=== PATIENT | female | born 1970 | race Two or more races ===

== ENCOUNTER → 2024-07-23 | Outpatient (CLI) | payer BC, SELFPAY ==
--- NOTE | 2024-07-23 09:30 | XR_ITS ---
Examination: Esophagram standard Upright PA chest single view Upright soft tissue lateral neck single view Fluoroscopy 24 spot fluoroscopic films of the esophagus Exam date and time: July 23, 2024 0942 hours INDICATIONS: Heartburn acid reflux patient feels a lump in the back of her throat with swallowing TECHNIQUE AND FINDINGS: Upright PA chest single view normal heart size no pneumonia or pulmonary edema Upright soft tissue lateral neck moderate to advanced degenerative disc disease C4-C5, C5-C6, C6-C7 Patient swallowed thin barium with 24 spot fluoroscopic films of the esophagus Fluoroscopy 0.13 minutes Primary peristaltic esophageal waves noted No constricting esophageal lesion No esophageal ulcerations Moderate intermittent gastroesophageal reflux There is no stricture at the gastroesophageal junction IMPRESSION: Moderate intermittent gastroesophageal reflux There is no stricture the gastroesophageal junction
[2024-07-23 11:16] LABS: Basophils # (Auto) 0.1 Thou/mm3 (0.0-0.2); Basophils % (Auto) 1 % (0-2.5); Eosinophils # (Auto) 0.3 Thou/mm3 (0.0-0.5); Eosinophils % (Auto) 4 % (0-10); Immature Granulocytes % (Auto) 0 % (0-0); Immature Granulocytes Auto 0.02 Thou/mm3 (0.00-0.00); Lymphocytes # (Auto) 1.9 Thou/mm3 (1.0-4.8); Lymphocytes % (Auto) 30 % (10-50); Mean Corpuscular HGB Conc 33.3 g/dl (31.0-37.0); Mean Corpuscular Hemoglobin 30.6 pg (25.0-35.0); Mean Corpuscular Volume 92 fL (80-100); Monocytes # (Auto) 0.7 Thou/mm3 (0.0-0.8); Monocytes % (Auto) 11 % (0-12); Neutrophils # (Auto) 3.4 Thou/mm3 (1.8-7.7); Neutrophils % (Auto) 54 % (37-80); Nucleated Red Blood Cell % 0 /100 WBC (0); Platelet Count 307 Thou/mm3 (140-440); Red Blood Count 4.25 Miln/mm3 (4.00-5.20); White Blood Count 6.3 Thou/mm3 (3.6-11.0)
[2024-07-23 11:26] LABS: Glucose Estimated Average 108 mg/dL (80-131); Hemoglobin A1C 5.4 % Hgb (4.8-6.0)
[2024-07-23 11:34] LABS: Alanine Aminotransferase 18 U/L (10-49); Albumin, Serum 4.5 gm/dL (3.5-5.0); Albumin/Globulin Ratio 1.8 (1.2-2.2); Alkaline Phosphatase 75 U/L (46-116); Anion Gap 7 (7-16); Aspartate Amino Transferase 19 U/L (0-34); BUN/Creatinine Ratio 16 Ratio (12-20); Blood Urea Nitrogen 13 mg/dL (9-23); Calcium 9.2 mg/dL (8.3-10.6); Calcium (Corrected) 9.2 mg/dL (8.5-10.1); Carbon Dioxide 29.7 mMol/L (20.0-31.0); Cardiac Risk Estimate 3.5 RATIO (3.7-5.6); Chloride 102 mMol/L (98-107); Cholesterol 192 mg/dL (132-200); Creatinine (Component) 0.8 mg/dL (0.6-1.3); Free T4 (Free Thyroxine) 1.08 ng/dL (0.89-1.76); Globulin 2.5 gm/dL (2.3-3.5); Glucose 94 mg/dL (74-106); HDL Cholesterol 55 mg/dL (40-60); LDL Cholesterol,Calculated 117 mg/dL (0-130); Osmolality,Calculated 277 (275-295); Potassium 4.5 mMol/L (3.4-5.1); Sodium 139 mMol/L (136-145); Thyroid Stimulating Hormone 1.92 uIU/mL (0.55-4.78); Triglycerides 99 mg/dL (30-150); eGFR > 60 See Note
[2024-07-23 11:42] LABS: T4 (Thyroxine) 5.6 mcg/dL (4.5-10.9)
[2024-07-23 11:43] LABS: Folate 15.32 ng/mL (>5.38); Follicle Stimulating Hormone 6.68 mIU/mL (See Note); Vitamin B12 566 pg/mL (211-911)
[2024-07-27 06:43] LABS: T3,Total* 84 ng/dL (76-181)
== END | disposition home or self-care (01) ==
LOC: CDIM 09:21 → COPL 10:24
PROVIDERS: PCP Family Medicine; Referring Provider Obstetrics & Gynecology; Visit Provider Radiology Diagnostic Radiology
DX: K21.9 Gastro-esophageal reflux disease without esophagitis (principal); Z00.00 Encounter for general adult medical examination without abnormal findings; N95.1 Menopausal and female climacteric states
CPT/HCPCS: 36415; 74220; 80053; 80061; 82607; 82746; 83001; 83036; 84436; 84439; 84443; 84480; 85025

== ENCOUNTER → 2024-10-22 | Outpatient (CLI) | payer BC, SELFPAY ==
--- NOTE | 2024-10-22 08:15 | XR_ITS ---
Examination: Screening digital mammography, bilateral Computer aided detection 3-D breast Tomosynthesis, bilateral Date and time of exam: October 22, 2024 0824 hours Compared to mammograms dating to February 07, 2013 Indication: Screening Technique: Nonmagnified MLO, CC views of the breasts to been obtained, reconstructed from 3-D Tomosynthesis images. R2 computer aided detection program utilized for evaluation of suspicious masses and/or abnormal calcifications. 3-D Tomosynthesis images obtained. Findings: The breasts are heterogeneously dense, which may obscure small masses Intact implants No interval suspicious masses Impression: BI-RADS category II: Benign Findings. Recommend 1 year follow-up mammogram. Given the 2:00 and 9:00 nodules right breast described on right breast sonogram March 30, 2021, recommend right breast sonography follow-up
== END | disposition home or self-care (01) ==
LOC: CDIM 08:10
PROVIDERS: Referring Provider Family Medicine; Visit Provider Family Medicine
DX: Z12.31 Encounter for screening mammogram for malignant neoplasm of breast (principal); R92.323 Mammographic fibroglandular density, bilateral breasts; N63.15 Unspecified lump in the right breast, overlapping quadrants
CPT/HCPCS: 77063; 77067

== ENCOUNTER → 2024-11-06 | Outpatient (CLI) | payer BC, SELFPAY ==
--- NOTE | 2024-11-06 16:00 | XR_ITS ---
Examination: Breast ultrasound, unilateral, right Date and time of exam: November 06, 2024 1538 hours INDICATIONS: Right breast sonogram March 30, 2021 2:00 nodule 6 mm 9:00 nodule 12 mm 9:00 nodule 9 mm Technique: Real-time schafer scale ultrasonographic imaging performed right breast including all 4 quadrants as well as nipple retroareolar and axillary region. Findings: 2:00 cyst 5 x 4 mm 5:00 cyst 6 x 6 mm 8:00 nodule lobular margins 17 x 12 mm 8:00 nodule lobular margins 11 x 7 mm 9:00 cyst 6 x 6 mm IMPRESSION: BI-RADS Category 3: Probably benign findings One additional continued 6 month follow-up right breast sonogram is needed to document stability of nodules in the 8:00 position right breast
== END | disposition home or self-care (01) ==
LOC: CDIM 15:31
PROVIDERS: PCP Family Medicine; Referring Provider Family Medicine; Visit Provider Family Medicine
DX: N63.13 Unspecified lump in the right breast, lower outer quadrant (principal)
CPT/HCPCS: 76641

== ENCOUNTER → 2025-03-25 | Outpatient (CLI) | payer BC, SELFPAY ==
--- NOTE | 2025-03-25 08:45 | XR_ITS ---
Examination: Breast ultrasound, unilateral, right complete Date and time of exam: March 25, 2025, 0923 hours INDICATIONS: Right breast sonogram March 30, 2021 2:00 nodule 6 mm 9:00 nodule 12 mm 9:00 nodule 9 mm, sonogram November 06, 2024 10:00 nodule 17 mm 8:00 nodule 11 mm Technique: Real-time schafer scale ultrasonographic imaging performed right breast including all 4 quadrants as well as nipple retroareolar and axillary region. Findings: 2:00 cyst 3 x 3 mm 8:00 solid nodule lobular margins 21 x 11 mm 8:00 nodule lobular margins 5 x 10 mm 9:00 nodule lobular margins 8 x 6 mm IMPRESSION: BI-RADS Category 3: Benign findings One additional 6 month right breast sonogram follow-up is needed to document stability of nodules described above
[2025-03-25 10:36] LABS: Free T3 3.9 pg/mL (2.3-4.2); Free T4 (Free Thyroxine) 1.26 ng/dL (0.89-1.76); Thyroid Stimulating Hormone 1.93 uIU/mL (0.55-4.78)
[2025-03-25 10:39] LABS: Follicle Stimulating Hormone 30.65 mIU/mL (See Note)
[2025-04-10 06:48] LABS: DHEA Sulfate* 57 mcg/dL (8-188); Estradiol, Ultrasensitive* 30 pg/mL; Luteinizing Hormone* 22.4 mIU/mL; Sex Hormone Binding Globulin* 21 nmol/L (17-124); Testosterone, Free,Dialysis 1.3 pg/mL (0.1-6.4); Testosterone, Total, Dialysis 8 ng/dL (2-45)
== END | disposition home or self-care (01) ==
LOC: CDIM 09:11 → COPL 09:39
PROVIDERS: PCP Family Medicine; Referring Provider Nurse Practitioner Family; Visit Provider Radiology Diagnostic Radiology
DX: N63.10 Unspecified lump in the right breast, unspecified quadrant (principal); N95.1 Menopausal and female climacteric states; R53.83 Other fatigue; E66.3 Overweight
CPT/HCPCS: 36415; 76641; 82627; 82670; 83001; 83002; 84270; 84402; 84403; 84439; 84443; 84481